=== PATIENT | female | born 1980 | race Caucasian/White ===

== ENCOUNTER 2018-09-21 17:55 | Inpatient (IN) | payer MEDICAID, OTHER ==
[2018-09-21 18:19] VITALS: BMI 32.3
[2018-09-21] MEDS ORDERED: Sodium Chloride 0.9% 1,000 ML IV ONE (19:21)
--- NOTE | 2018-09-21 19:23 | C.PDOC ---
History Of Present Illness 38 year old female presents to ED with complaint of dysuria, back pain, suprapubic pressure, fever/chills, nausea, and vomiting for the past 3 days. Temperature noted to be 102.4. Patient took Motrin for fever, but states that she vomited it up. Patient was given tylenol in triage. Patient's last menstrual period was on 08/20/18. Patient reports that she is not . She denies history of kidney stones. Patient states she feels generally weak and also described a diffuse, nonradiating headache. She denies diarrhea, constipation, pelvic bleeding, vaginal discharge, hematuria, cough, body aches, and sore throat. No other complaints at this time. Time Seen by Provider: 09/21/18 19:06 Chief Complaint (Nursing): Female Genitourinary History Per: Patient History/Exam Limitations: no limitations Onset/Duration Of Symptoms: Days (3) Current Symptoms Are (Timing): Still Present Quality Of Discomfort: "Pain" Associated Symptoms: Fever, Nausea, Vomiting, Back Pain (lower), Urinary Symptoms (dysuria), Other (pelvic pain) Abnormal Vaginal Bleeding: No Past Medical History Reviewed: Historical Data, Nursing Documentation, Vital Signs Vital Signs: Last Vital Signs Temp 102.4 F H 09/21/18 18:19 Pulse 133 H 09/21/18 18:19 Resp 22 09/21/18 18:19 BP 128/86 09/21/18 18:19 Pulse Ox 99 09/21/18 18:19 Primary Care Provider: FAMILY PROVIDER,NO - Medical History PMH: No Chronic Diseases Denies: Kidney Stones Surgical History: No Surg Hx - [facility] Procedures INJECT/INFUSE NEC (08/09/14) Family History: States: Unknown Family Hx - Social History Hx Alcohol Use: No Hx Substance Use: No - Immunization History Hx Tetanus Toxoid Vaccination: No Hx Influenza Vaccination: No Hx Pneumococcal Vaccination: No Review Of Systems Except As Marked, All Systems Reviewed And Found Negative. Constitutional: Positive for: Fever Gastrointestinal: Positive for: Nausea, Vomiting Genitourinary: Positive for: Dysuria, Pelvic Pain Musculoskeletal: Positive for: Back Pain Physical Exam - Physical Exam Appears: No Acute Distress, Other (Appears ill) Skin: Normal Color, Warm, Diaphoretic Head: Atraumatic, Normacephalic Eye(s): bilateral: Normal Inspection Oral Mucosa: Dry Throat: Normal, No Erythema, No Exudate, No Drooling Neck: Normal ROM, Supple Lymphatic: No Adenopathy Chest: Symmetrical, No Deformity Cardiovascular: Other (tachycardic) Respiratory: Normal Breath Sounds, No Rales, No Rhonchi, No Wheezing Gastrointestinal/Abdominal: Bowel Sounds (normoactive), Soft, Tenderness (suprapubic), No Rebound Back: Normal Inspection, CVA Tenderness (bilaterlly, worse on the left side), No Decreased ROM Extremity: Normal ROM, Capillary Refill (<2 seconds), No Swelling Extremity: Bilateral: Atraumatic Neurological/Psych: Oriented x3, Normal Speech, Normal Cognition ED Course And Treatment - Laboratory Results Result Diagrams: 09/21/18 19:21 09/21/18 21:02 O2 Sat by Pulse Oximetry: 99 (in RA) Pulse Ox Interpretation: Normal Medical Decision Making Medical Decision Making: Impression: 38 year old female presents to ED with complaint of dysuria, lower back pain, pelvic pain, fevers, nausea, and vomiting for the past 3 days. Initial Plan: Urine POC negative per ED RN. CMP CBC blood culture UA/UC IV fluids Toradol Tylenol Zofran Rocephin 09/21/18 2100 Patient states she is feeling a bit better. Awaiting results of CMP. Additional fluids ordered. 09/21/182134 Labs reviewed with patient. Patient with pyuria, 21k WBC and fever. Not . Pyelonephritis. Plan for admission. 09/21/182135 Spoke with Gaudencio Serra, Hospitalist, and will admit. Disposition - Disposition Disposition Time: 21:36 Condition: GOOD - Clinical Impression Clinical Impression: Pyelonephritis - PA / [employer] / Resident Statement MD/DO has reviewed & agrees with the documentation as recorded. (Yelena Flower) - Scribe Statement The provider has reviewed the documentation as recorded by the Scribe (Yelena Flower) All medical record entries made by the Scribe were at my direction and personally dictated by me. I have reviewed the chart and agree that the record accurately reflects my personal performance of the history, physical exam, medical decision making, and the department course for this patient. I have also personally directed, reviewed, and agree with the discharge instructions and disposition.
[2018-09-21] MEDS ORDERED: Sodium Chloride 0.9% 1,000 ML ONE (19:44)
[2018-09-21 19:59] LABS: BASO % 0.1 % (0.0-2.0); HEMOGLOBIN 12.6 g/dL (11.0-16.0); LYMPH # 1.9 K/uL (1.0-4.3); LYMPH % 9.2 % (20.0-40.0); MEAN CORPUSCULAR HEMOGLOBIN 32.3 pg (27.0-31.0); MEAN CORPUSCULAR HGB CONC 34.2 g/dL (33.0-37.0); MEAN PLATELET VOLUME 7.9 fL (7.2-11.7); MONO % 9.6 % (0.0-10.0); NEUT # 17.1 K/uL (1.8-7.0); NEUT % 81.1 % (50.0-75.0); PLATELET COUNT 268 K/uL (130-400); RBC 3.88 Mil/uL (3.80-5.20); RED CELL DISTRIBUTION WIDTH 13.4 % (11.5-14.5)
[2018-09-21 20:07] LABS: SQUAMOUS EPITHIAL 7 /hpf (0-5); URINE BILIRUBIN NEGATIVE (NEGATIVE); URINE BLOOD 3+ (NEGATIVE); URINE CLARITY Turbid (Clear); URINE COLOR Amber (YELLOW); URINE GLUCOSE (UA) NORMAL (Normal); URINE LEUKOCYTE ESTERASE 2+ Leu/uL (Negative); URINE PROTEIN 2+ mg/dL (NEGATIVE); WBC CLUMPS MANY /hpf
[2018-09-21 20:08] LABS: MEAN CELL VOLUME 94.6 fL (81.0-99.0); WHITE BLOOD COUNT 21.1 K/uL (4.8-10.8)
[2018-09-21] MEDS ORDERED: Sodium Chloride 0.9% 1,000 ML IV STA (20:40)
[2018-09-21 21:19] LABS: ALB/GLOB RATIO 0.9 (1.0-2.1); ALBUMIN 3.5 g/dL (3.5-5.0); ALT/SGPT 20 U/L (9-52); AST/SGOT 19 U/L (14-36); BLOOD UREA NITROGEN 7 mg/dL (7-17); GFR NON-AFRICAN AMERICAN > 60
[2018-09-21] MEDS ORDERED: Potassium Chloride 20 mEq ER Tab PO STA (21:23)
[2018-09-21] MEDS ORDERED: Potassium Chloride 20 mEq ER Tab PO ONE (21:33)
[2018-09-21 22:01] LABS: BASOPHIL 1 % (0-2); LYMPHOCYTE 12 % (20-40); MONOCYTE 7 % (0-10); NEUTROPHIL 80 % (50-75); TOTAL CELLS COUNTED 100
[2018-09-21 22:02] LABS: PLATELET ESTIMATE NORMAL (NORMAL)
[2018-09-22] MEDS: Sodium Chloride 0.9% 1,000 ML IV SCH ×5 (01:05→19:31)
--- NOTE | 2018-09-22 01:10 | CP.PCM.HP ---
<Bear Rae - Last Filed: 09/22/18 01:17> History of Present Illness - History of Present Illness History of Present Illness: 38F PMHx of hematuria presents to ED with complaint of dysuria, back pain, suprapubic pressure, fever/chills, nausea, and vomiting for the past 3 days. Temperature noted to be 102.4. Patient took Motrin for fever, but states that she vomited it up. Pt reports having hematuria for about 3 years or so, has followed up with a doctor on but cant remember her name. says she got an U/S that showed kidney stones. Patient reports that she is not . Patient states she feels generally weak and also described a diffuse, nonradiating headache. Pos+ Nausea, Vomiting, Fevers, Chills, hematuria, dysuria Neg- CP, SOB, diarrhea, constipation, pelvic bleeding, vaginal discharge, cough, body aches, and sore throat. PMHx: hematuria and possible kidney stones? Pt unsure PSx: denies FH:denies SocHx: denies ETOH smoking, drugs Allergies: none Home Rx: none Present on Admission - Present on Admission Any Indicators Present on Admission: No Review of Systems - Review of Systems All systems: reviewed and no additional remarkable complaints except (as per HPI) Past Patient History - Past Medical History & Family History Past Medical History?: No - Past Social History Smoking Status: Never Smoked - CARDIAC Hx Cardiac Disorders: No - PULMONARY Hx Respiratory Disorders: No - NEUROLOGICAL Hx Neurological Disorder: No - HEENT Hx HEENT Problems: No - RENAL Hx Chronic Kidney Disease: No Hx Kidney Stones: No - ENDOCRINE/METABOLIC Hx Endocrine Disorders: No - HEMATOLOGICAL/ONCOLOGICAL Hx Blood Disorders: No - INTEGUMENTARY Hx Dermatological Problems: No - MUSCULOSKELETAL/RHEUMATOLOGICAL Hx Musculoskeletal Disorders: No - GASTROINTESTINAL Hx Gastrointestinal Disorders: No - GENITOURINARY/GYNECOLOGICAL Hx Genitourinary Disorders: Yes Other/Comment: bacterial vaginitis, uti - PSYCHIATRIC Hx Substance Use: No - SURGICAL HISTORY Hx Surgeries: No - ANESTHESIA Hx Anesthesia: No Meds Allergies/Adverse Reactions: Allergies Allergy/AdvReac Type Severity Reaction Status Date / Time No Known Allergies Allergy Verified 09/21/18 18:19 Physical Exam - Constitutional Appears: Non-toxic, No Acute Distress - Head Exam Head Exam: ATRAUMATIC, NORMAL INSPECTION - Eye Exam Eye Exam: EOMI, Normal appearance Pupil Exam: PERRL - ENT Exam ENT Exam: Mucous Membranes Moist, Normal Exam - Neck Exam Neck exam: Positive for: Full Rom. Negative for: Meningismus, Thyromegaly - Respiratory Exam Respiratory Exam: Clear to Auscultation Bilateral. absent: Rales, Rhonchi, Wheezes - Cardiovascular Exam Cardiovascular Exam: RRR, +S1, +S2 - GI/Abdominal Exam GI & Abdominal Exam: Normal Bowel Sounds. absent: Distended, Firm, Tenderness - Exam Additional comments: suprapubic tenderness - Extremities Exam Extremities exam: Positive for: pedal pulses present. Negative for: pedal edema - Back Exam Back exam: CVA tenderness (L), CVA tenderness (R) (worse on Right) - Neurological Exam Neurological exam: Alert, CN II-XII Intact, Oriented x3 - Psychiatric Exam Psychiatric exam: Normal Affect, Normal Mood - Skin Skin Exam: Diaphoretic, Normal Color, Warm Results - Vital Signs Recent Vital Signs: Last Vital Signs Temp 98 F 09/21/18 22:20 Pulse 89 09/21/18 22:20 Resp 19 09/21/18 22:20 BP 112/74 09/21/18 22:20 Pulse Ox 100 09/21/18 22:20 - Labs Result Diagrams: 09/21/18 19:21 09/21/18 21:02 Labs: Laboratory Results - last 24 hr 09/21/18 09/21/18 09/21/18 19:21 20:00 21:02 WBC 21.1 H D RBC 3.88 Hgb 12.6 Hct 36.7 MCV 94.6 D MCH 32.3 H MCHC 34.2 RDW 13.4 Plt Count 268 MPV 7.9 Neut % (Auto) 81.1 H Lymph % (Auto) 9.2 L [place] % (Auto) 9.6 Eos % (Auto) 0.0 Baso % (Auto) 0.1 Neut # (Auto) 17.1 H Lymph # (Auto) 1.9 [place] # (Auto) 2.0 H Eos # (Auto) 0.0 Baso # (Auto) 0.0 Neutrophils % (Manual) 80 H Lymphocytes % (Manual) 12 L Monocytes % (Manual) 7 Basophils % (Manual) 1 Platelet Estimate Normal Sodium 135 Potassium 3.2 L Chloride 104 Carbon Dioxide 23 Anion Gap 12 BUN 7 Creatinine 0.8 Est GFR ( Amer) > 60 Est GFR (Non-Af Amer) > 60 Random Glucose 131 H D Lactic Acid Calcium 8.0 L Total Bilirubin 0.6 AST 19 ALT 20 Alkaline Phosphatase 72 Total Protein 7.2 Albumin 3.5 D Globulin 3.7 Albumin/Globulin Ratio 0.9 L Urine Color [place] Urine Clarity Turbid Urine pH 6.0 Ur Specific [place] 1.016 Urine Protein 2+ H Urine Glucose (UA) Normal Urine Ketones 1+ H Urine Blood 3+ H Urine Nitrate Negative Urine Bilirubin Negative Urine Urobilinogen 2.0 H Ur Leukocyte Esterase 2+ H Urine WBC (Auto) 3545 H Urine RBC (Auto) 29 H Urine WBC Clumps (Auto) Many H Ur Squamous Epith Cells 7 H 09/21/18 22:10 WBC RBC Hgb Hct MCV MCH MCHC RDW Plt Count MPV Neut % (Auto) Lymph % (Auto) [place] % (Auto) Eos % (Auto) Baso % (Auto) Neut # (Auto) Lymph # (Auto) [place] # (Auto) Eos # (Auto) Baso # (Auto) Neutrophils % (Manual) Lymphocytes % (Manual) Monocytes % (Manual) Basophils % (Manual) Platelet Estimate Sodium Potassium Chloride Carbon Dioxide Anion Gap BUN Creatinine Est GFR ( Amer) Est GFR (Non-Af Amer) Random Glucose Lactic Acid 0.9 Calcium Total Bilirubin AST ALT Alkaline Phosphatase Total Protein Albumin Globulin Albumin/Globulin Ratio Urine Color Urine Clarity Urine pH Ur Specific [place] Urine Protein Urine Glucose (UA) Urine Ketones Urine Blood Urine Nitrate Urine Bilirubin Urine Urobilinogen Ur Leukocyte Esterase Urine WBC (Auto) Urine RBC (Auto) Urine WBC Clumps (Auto) Ur Squamous Epith Cells Assessment & Plan - Assessment and Plan (Free Text) Assessment: 38F admitted for UTI, possible pyelonephritis UTI, Possible Pyelonephritis-acute NS @ 200 Rocephin 1g q12 IVPB Zofran PRN Tylenol for fevers f/u cultures, renal US Hypokalemia-acute Replete accordingly f/u AM Labs Hematuria-chronic f/u Renal US possible nephrolithiasis PPx no anticoag, hematuria HHD CK PGY1 <Hilario Verduzco - Last Filed: 09/22/18 06:35> Results - Vital Signs Recent Vital Signs: Last Vital Signs Temp 97.5 F L 09/22/18 02:13 Pulse 83 09/21/18 23:27 Resp 20 09/21/18 23:27 BP 93/61 L 09/21/18 23:27 Pulse Ox 95 09/21/18 23:27 - Labs Result Diagrams: 09/21/18 19:21 09/21/18 21:02 Labs: Laboratory Results - last 24 hr 09/21/18 09/21/18 09/21/18 19:21 20:00 21:02 WBC 21.1 H D RBC 3.88 Hgb 12.6 Hct 36.7 MCV 94.6 D MCH 32.3 H MCHC 34.2 RDW 13.4 Plt Count 268 MPV 7.9 Neut % (Auto) 81.1 H Lymph % (Auto) 9.2 L [place] % (Auto) 9.6 Eos % (Auto) 0.0 Baso % (Auto) 0.1 Neut # (Auto) 17.1 H Lymph # (Auto) 1.9 [place] # (Auto) 2.0 H Eos # (Auto) 0.0 Baso # (Auto) 0.0 Neutrophils % (Manual) 80 H Lymphocytes % (Manual) 12 L Monocytes % (Manual) 7 Basophils % (Manual) 1 Platelet Estimate Normal Sodium 135 Potassium 3.2 L Chloride 104 Carbon Dioxide 23 Anion Gap 12 BUN 7 Creatinine 0.8 Est GFR ( Amer) > 60 Est GFR (Non-Af Amer) > 60 Random Glucose 131 H D Lactic Acid Calcium 8.0 L Total Bilirubin 0.6 AST 19 ALT 20 Alkaline Phosphatase 72 Total Protein 7.2 Albumin 3.5 D Globulin 3.7 Albumin/Globulin Ratio 0.9 L Urine Color [place] Urine Clarity Turbid Urine pH 6.0 Ur Specific [place] 1.016 Urine Protein 2+ H Urine Glucose (UA) Normal Urine Ketones 1+ H Urine Blood 3+ H Urine Nitrate Negative Urine Bilirubin Negative Urine Urobilinogen 2.0 H Ur Leukocyte Esterase 2+ H Urine WBC (Auto) 3545 H Urine RBC (Auto) 29 H Urine WBC Clumps (Auto) Many H Ur Squamous Epith Cells 7 H 09/21/18 22:10 WBC RBC Hgb Hct MCV MCH MCHC RDW Plt Count MPV Neut % (Auto) Lymph % (Auto) [place] % (Auto) Eos % (Auto) Baso % (Auto) Neut # (Auto) Lymph # (Auto) [place] # (Auto) Eos # (Auto) Baso # (Auto) Neutrophils % (Manual) Lymphocytes % (Manual) Monocytes % (Manual) Basophils % (Manual) Platelet Estimate Sodium Potassium Chloride Carbon Dioxide Anion Gap BUN Creatinine Est GFR ( Amer) Est GFR (Non-Af Amer) Random Glucose Lactic Acid 0.9 Calcium Total Bilirubin AST ALT Alkaline Phosphatase Total Protein Albumin Globulin Albumin/Globulin Ratio Urine Color Urine Clarity Urine pH Ur Specific [place] Urine Protein Urine Glucose (UA) Urine Ketones Urine Blood Urine Nitrate Urine Bilirubin Urine Urobilinogen Ur Leukocyte Esterase Urine WBC (Auto) Urine RBC (Auto) Urine WBC Clumps (Auto) Ur Squamous Epith Cells Assessment & Plan - Date & Time Date: 09/22/18 (I have seen and examined the patient. I agree with the findings and plan of care as documented by Dr. Rae. Patient with acute pyelonephritis. Urine and blood cultures. Rocephin IV for now. Check renal u ltrasound. Hypokalemia. Replete. Recheck labs in AM. Monitor for acute changes.) Time: 02:40 Attending/Attestation - Attestation I have personally seen and examined this patient.: Yes I have fully participated in the care of the patient.: Yes I have reviewed all pertinent clinical information: Yes
[2018-09-22] MEDS ORDERED: Potassium Chloride 20 mEq ER Tab PO ONE (06:00)
--- NOTE | 2018-09-22 07:29 | CP.PCM.PN ---
<MercedesAnanda - Last Filed: 09/22/18 16:56> Subjective - Date & Time of Evaluation Date of Evaluation: 09/22/18 Time of Evaluation: 10:00 - Subjective Subjective: PGY1 medicine progress note for Dr. Gardner Pt seen and examined at bedside. Fever 100.4 overnight, treated with Tylenol. Pt reports improvement of pain,but still has right sided back pain. 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 Denies chest pain, sob, abdominal pain, n/v/d, hematochezia. Objective - Vital Signs/Intake and Output Vital Signs (last 24 hours): Temp Pulse Resp BP Pulse Ox 97.5 F L 83 20 93/61 L 95 09/22/18 02:13 09/21/18 23:27 09/21/18 23:27 09/21/18 23:27 09/21/18 23:27 Intake and Output: 09/22/18 09/22/18 06:59 18:59 Intake Total 1440 Balance 1440 - Medications Medications: Current Medications Acetaminophen (Tylenol 325mg Tab) 650 mg PO Q6 PRN PRN Reason: Fever >100.4 F Last Admin: 09/22/18 01:13 Dose: 650 mg Ceftriaxone Sodium 1 gm/ (Sodium Chloride) 100 mls @ 100 mls/hr IVPB Q12H LAWANDA; Protocol Sodium Chloride (Sodium Chloride 0.9%) 1,000 mls @ 200 mls/hr IV .Q5H LAWANDA Last Admin: 09/22/18 05:47 Dose: 200 mls/hr Ondansetron HCl (Zofran Inj) 4 mg IVP Q4 PRN PRN Reason: Nausea/Vomiting - Labs Labs: 09/21/18 19:21 09/21/18 21:02 - Constitutional Appears: Non-toxic, No Acute Distress - Head Exam Head Exam: ATRAUMATIC, NORMAL INSPECTION - Eye Exam Eye Exam: EOMI, Normal appearance - ENT Exam ENT Exam: Mucous Membranes Moist - Respiratory Exam Respiratory Exam: Clear to Ausculation Bilateral. absent: Rales, Rhonchi, Wheezes, Respiratory Distress, Stridor - Cardiovascular Exam Cardiovascular Exam: Tachycardia (approximately 100), +S1, +S2 - GI/Abdominal Exam GI & Abdominal Exam: Soft, Normal Bowel Sounds. absent: Distended, Firm, Guarding, Rigid, Tenderness (no suprapubic tenderness) Additional comments: (-) shani's sign - Extremities Exam Extremities Exam: Normal Capillary Refill. absent: Calf Tenderness, Pedal Edema, Tenderness - Back Exam Back Exam: CVA tenderness (L), CVA tenderness (R) (right greater than left) - Neurological Exam Neurological Exam: Alert, Awake, Normal Gait - Psychiatric Exam Psychiatric exam: Normal Affect, Normal Mood - Skin Skin Exam: Dry, Normal Color, Warm Assessment and Plan - Assessment and Plan (Free Text) Assessment: This is a 38 year old female with PMH of nephrolithiasis, who presents with fever, back pain, hematuria and pain on urination for the past 3 days. Plan: Sepsis secondary to UTI Clinical pyelonephritis Posisble kidney stone Tmax 102.9 in the past 24 hours, pt tachycardic with leukocytosis UA shows leukocyte esterase, bacteria, pyuria Prelim urine culture shows gram negative rods, f/u official NS @ 200 Rocephin 1g q12 IVPB (09/22) switched to Primaxin 500 mg IVPB q6h (09/22) due to continued fevers Zofran PRN Tylenol for fevers Renal US shows no nephrolithiasis, no hydronephrosis f/u official urine culture, blood culture, CTAP with and without contrast f/u stat labs as well Hypokalemia-acute Replete as needed Hematuria-chronic Renal US as above F/u CTAP PPx no anticoag, hematuria SCDs HHD Case discussed with Dr. Kendra Long PGY1 <Angel Gardner H - Last Filed: 09/22/18 17:36> Objective - Vital Signs/Intake and Output Vital Signs (last 24 hours): Temp Pulse Resp BP Pulse Ox 99.0 F 111 H 18 138/83 98 09/22/18 16:06 09/22/18 15:00 09/22/18 15:00 09/22/18 15:00 09/22/18 15:00 Intake and Output: 09/22/18 09/22/18 06:59 18:59 Intake Total 1440 1700 Balance 1440 1700 - Medications Medications: Current Medications Acetaminophen (Tylenol 325mg Tab) 650 mg PO Q6 PRN PRN Reason: Fever >100.4 F Last Admin: 09/22/18 15:06 Dose: 650 mg Sodium Chloride (Sodium Chloride 0.9%) 1,000 mls @ 200 mls/hr IV .Q5H LAWANDA Last Admin: 09/22/18 10:38 Dose: 200 mls/hr Imipenem/Cilastatin Sodium 500 (mg/ Sodium Chloride) 100 mls @ 100 mls/hr IVPB Q6H LAWANDA; Protocol Ondansetron HCl (Zofran Inj) 4 mg IVP Q4 PRN PRN Reason: Nausea/Vomiting - Labs Labs: 09/21/18 19:21 09/21/18 21:02 Attending/Attestation - Attestation I have personally seen and examined this patient.: Yes I have fully participated in the care of the patient.: Yes I have reviewed all pertinent clinical information, including history, physical exam and plan: Yes Notes (Text): 09/22/18 17:31 Medical attending: Patient was seen and examined by me. Agree with the above note by the resident We are ordering a CT scan of the abdomen and pelvis to assess for potential stones/nephrolithiais which could cause further complications of her UTI/pyelonephritis. She does have flank pain on exam. Later in the day she was still having fevers and so we changed her IV abx from the rocpehin IV over to IV primaxin Angel Gardner
[2018-09-22] MEDS ORDERED: Iodixanol 320 MG/ML 100 ML BOTTLE IV ONE (12:49)
--- NOTE | 2018-09-22 13:43 | US ---
Date of service: 09/22/2018 PROCEDURE: Ultrasound of the Kidneys HISTORY: pyelo, possible hx of stones, hematuria COMPARISON: None available. TECHNIQUE: Sonogram of the kidneys. FINDINGS: RIGHT KIDNEY: Measures: 13.3 cm. Normal in size, contour and echogenicity. No stone, solid mass lesion or hydronephrosis visualized. LEFT KIDNEY: Measures: 12.5 cm. Normal in size, contour and echogenicity. No stone, solid mass lesion or hydronephrosis visualized. OTHER FINDINGS: None. IMPRESSION: No hydronephrosis or nephrolithiasis.
[2018-09-22 19:57] LABS: BASO % 0.1 % (0.0-2.0); EOS % 0.2 % (0.0-4.0); HEMOGLOBIN 11.3 g/dL (11.0-16.0); LYMPH # 2.1 K/uL (1.0-4.3); LYMPH % 11.2 % (20.0-40.0); MEAN CELL VOLUME 93.9 fL (81.0-99.0); MEAN CORPUSCULAR HEMOGLOBIN 31.8 pg (27.0-31.0); MEAN CORPUSCULAR HGB CONC 33.9 g/dL (33.0-37.0); MEAN PLATELET VOLUME 7.6 fL (7.2-11.7); MONO # 1.8 K/uL (0.0-0.8); MONO % 9.4 % (0.0-10.0); NEUT # 14.9 K/uL (1.8-7.0); NEUT % 79.1 % (50.0-75.0); NRBC % 0.1 % (0.0-2.0); RBC 3.56 Mil/uL (3.80-5.20); RED CELL DISTRIBUTION WIDTH 13.3 % (11.5-14.5); WHITE BLOOD COUNT 18.8 K/uL (4.8-10.8)
[2018-09-22 20:15] LABS: ALB/GLOB RATIO 0.9 (1.0-2.1); ALBUMIN 3.6 g/dL (3.5-5.0); ALT/SGPT 21 U/L (9-52); AST/SGOT 18 U/L (14-36); BLOOD UREA NITROGEN 4 mg/dL (7-17); GFR NON-AFRICAN AMERICAN > 60
[2018-09-23] MEDS: Sodium Chloride 0.9% 1,000 ML IV SCH ×4 (01:57→17:48)
[2018-09-23 07:53] LABS: BASO # 0.1 K/uL (0.0-0.2); BASO % 0.4 % (0.0-2.0); EOS # 0.2 K/uL (0.0-0.7); EOS % 1.2 % (0.0-4.0); HEMOGLOBIN 11.4 g/dL (11.0-16.0); LYMPH # 2.3 K/uL (1.0-4.3); LYMPH % 13.5 % (20.0-40.0); MEAN CELL VOLUME 94.9 fL (81.0-99.0); MEAN CORPUSCULAR HGB CONC 33.7 g/dL (33.0-37.0); MEAN PLATELET VOLUME 8.2 fL (7.2-11.7); MONO # 0.9 K/uL (0.0-0.8); MONO % 5.2 % (0.0-10.0); NEUT # 13.5 K/uL (1.8-7.0); NEUT % 79.7 % (50.0-75.0); RBC 3.57 Mil/uL (3.80-5.20); RED CELL DISTRIBUTION WIDTH 13.5 % (11.5-14.5)
[2018-09-23 08:16] LABS: ALBUMIN 3.4 g/dL (3.5-5.0); ALT/SGPT 18 U/L (9-52); AST/SGOT 23 U/L (14-36); BLOOD UREA NITROGEN 3 mg/dL (7-17); CALCIUM 7.9 mg/dl (8.6-10.4); GFR NON-AFRICAN AMERICAN > 60
--- NOTE | 2018-09-23 11:18 | CT ---
Date of service: 09/22/2018 PROCEDURE: CT Abdomen and Pelvis with contrast HISTORY: Pyelonephritis. History of nephrolithiasis. Hematuria COMPARISON: 09/22/2018. Renal ultrasound. TECHNIQUE: Intravenous contrast dose: 100 cc Visipaque 320. Radiation dose: Total exam DLP = 1010.59 mGy-cm. This CT exam was performed using one or more of the following dose reduction techniques: Automated exposure control, adjustment of the mA and/or kV according to patient size, and/or use of iterative reconstruction technique. FINDINGS: LOWER THORAX: Unremarkable. LIVER: Unremarkable. No gross lesion or ductal dilatation. GALLBLADDER AND BILE DUCTS: Unremarkable. PANCREAS: Unremarkable. No gross lesion or ductal dilatation. SPLEEN: Unremarkable. ADRENALS: Unremarkable. No mass. KIDNEYS AND URETERS: Edematous kidneys bilaterally right greater than left. Perinephric inflammatory changes noted right kidney. Abnormal contrast-enhancing characteristics of most of the right kidney and portions the left kidney indicative of acute pyelonephritis. No perinephric collection. Unremarkable renal arteries and veins bilaterally. VASCULATURE: Unremarkable. No aortic aneurysm. No atherosclerotic calcification or mural plaque present. BOWEL: Unremarkable. No obstruction. No gross mural thickening. APPENDIX: A normal appendix is visualized in it's entirety. PERITONEUM: Unremarkable. No free fluid. No free air. LYMPH NODES: Unremarkable. No enlarged lymph nodes. BLADDER: Unremarkable. REPRODUCTIVE: Unremarkable. BONES: No acute fracture. OTHER FINDINGS: None. IMPRESSION: Edematous right kidney with abnormal contrast-enhancing characteristics and perinephric stranding consistent with acute inflammatory process-pyelonephritis. Less pronounced changes in the left kidney. No evidence of renal calculus disease, ureteral calculus disease, obstructive uropathy. Unremarkable urinary bladder.
[2018-09-23] MEDS ORDERED: Potassium Chloride 20 mEq ER Tab PO ONE (13:15)
[2018-09-23 13:27] LABS: ABG ALLEN TEST POS; ARTERIAL BLOOD GAS HCO3 20.4 mmol/L (21-28); ARTERIAL BLOOD GAS O2 SAT 90.7 % (95-98); ARTERIAL BLOOD GAS PCO2 25 mm/Hg (35-45); ARTERIAL BLOOD GAS PH 7.44 (7.35-7.45); ARTERIAL BLOOD GAS PO2 49 mm/Hg (80-100); ARTERIAL BLOOD GAS TCO2 17.8 mmol/L (22-28)
--- NOTE | 2018-09-23 14:08 | CP.PCM.PN ---
<Ananda Long - Last Filed: 09/23/18 16:21> Subjective - Date & Time of Evaluation Date of Evaluation: 09/23/18 Time of Evaluation: 10:15 - Subjective Subjective: PGY1 medicine progress note for Dr. Gardner Pt seen and examined at bedside. Pt reports improvement of pain, but still has right sided back pain. Reports resolution of heamturia. Denies chills, chest pain, abdominal pain, n/v/d, hematochezia, melena. Endorses intermittent shortness of breath with cough, nonproductive. Objective - Vital Signs/Intake and Output Vital Signs (last 24 hours): Temp Pulse Resp BP Pulse Ox 100.9 F H 111 H 20 138/82 98 09/23/18 12:20 09/23/18 12:20 09/23/18 12:20 09/23/18 12:20 09/23/18 12:20 Intake and Output: 09/23/18 09/23/18 06:59 18:59 Intake Total 3640 Balance 3640 - Medications Medications: Current Medications Acetaminophen (Tylenol 325mg Tab) 650 mg PO Q6 PRN PRN Reason: Fever >100.4 F Last Admin: 09/23/18 12:20 Dose: 650 mg Sodium Chloride (Sodium Chloride 0.9%) 1,000 mls @ 200 mls/hr IV .Q5H [facility] Last Admin: 09/23/18 12:11 Dose: 200 mls/hr Imipenem/Cilastatin Sodium 500 (mg/ Sodium Chloride) 100 mls @ 100 mls/hr IVPB Q6H [facility]; Protocol Last Admin: 09/23/18 12:09 Dose: 100 mls/hr Ondansetron HCl (Zofran Inj) 4 mg IVP Q4 PRN PRN Reason: Nausea/Vomiting - Labs Labs: 09/23/18 07:46 09/23/18 07:46 - Additional Findings Additional findings: - Constitutional Appears: Non-toxic, No Acute Distress - Head Exam Head Exam: ATRAUMATIC, NORMAL INSPECTION - Eye Exam Eye Exam: EOMI, Normal appearance - ENT Exam ENT Exam: Mucous Membranes Moist - Respiratory Exam Respiratory Exam: Clear to Ausculation Bilateral. absent: Rales, Rhonchi, Wheezes, Respiratory Distress, Stridor - Cardiovascular Exam Cardiovascular Exam: Tachycardia (approximately 100), +S1, +S2 - GI/Abdominal Exam GI & Abdominal Exam: Soft, Normal Bowel Sounds. absent: Distended, Firm, Guarding, Rigid, Tenderness (no suprapubic tenderness) Additional comments: (-) sahni's sign - Extremities Exam Extremities Exam: Normal Capillary Refill. absent: Calf Tenderness, Pedal Edema , Tenderness - Back Exam Back Exam: CVA tenderness (R). Absent left sided cva tendenress - Neurological Exam Neurological Exam: Alert, Awake, Normal Gait - Psychiatric Exam Psychiatric exam: Normal Affect, Normal Mood - Skin Skin Exam: Dry, Normal Color, Warm Assessment and Plan - Assessment and Plan (Free Text) Assessment: This is a 38 year old female with PMH of nephrolithiasis, who presents with fever, back pain, hematuria and pain on urination for the past 3 days. Plan: Sepsis secondary to pyelonephritis, PNA Pyelonephritis Tmax 101.5 in the past 24 hours, pt tachycardic with leukocytosis Leukocytosis is downtrending, with left shift, no bandemia UA shows leukocyte esterase, bacteria, pyuria Urine culture grew e. coli only resistant to ampicillin NS IVF reduced to 100 in light of small pleural effusions on chest CT Continue Primaxin 500 mg IVPB q6h (09/22) Zofran PRN Tylenol for fevers Renal US shows no nephrolithiasis, no hydronephrosis CTAP shows left pyelonephritis, no hydronephrosis or nephrolithiasis ABG (09/23) with shock panel shows lactate is 1.3 F/u repeat urinalysis with culture and sensitivity Pneumonia, likely CAP as developed within 48 hours of admission Chest CT shows multi-focal infiltrates, small bilateral pleural effusions Will start Azithromycin 500 mg IVPB q12 ABG shows respiratory alkalosis, po2 is 49 O2 via NC PRN F/u legionella, strep pneumo, mycoplasma pneumoniae Hypokalemia-acute Replete as needed Hematuria-chronic, improving UA as above Renal US as above CTAP as above PPx no anticoag, hematuria SCDs HHD Lactobacillus Case discussed with Dr. Kendra Long PGY1 <Angel Gardner - Last Filed: 09/24/18 09:14> Objective - Vital Signs/Intake and Output Vital Signs (last 24 hours): Temp Pulse Resp BP Pulse Ox 98.3 F 94 H 20 151/88 H 96 09/24/18 07:00 09/24/18 07:00 09/24/18 07:00 09/24/18 07:00 09/24/18 07:00 Intake and Output: 09/24/18 09/24/18 06:59 18:59 Intake Total 940 Balance 940 - Medications Medications: Current Medications Acetaminophen (Tylenol 325mg Tab) 650 mg PO Q6 PRN PRN Reason: Fever >100.4 F Last Admin: 09/23/18 12:20 Dose: 650 mg Imipenem/Cilastatin Sodium 500 (mg/ Sodium Chloride) 100 mls @ 100 mls/hr IVPB Q6H [facility]; Protocol Last Admin: 09/24/18 05:38 Dose: 100 mls/hr Sodium Chloride (Sodium Chloride 0.9%) 1,000 mls @ 100 mls/hr IV .Q10H [facility] Last Admin: 09/24/18 05:39 Dose: 100 mls/hr Azithromycin 500 mg/ Sodium (Chloride) 250 mls @ 250 mls/hr IVPB DAILY [facility]; Protocol Ketorolac Tromethamine (Toradol) 30 mg IVP Q12 PRN PRN Reason: Pain, moderate (4-7) Last Admin: 09/23/18 22:30 Dose: 30 mg Lactobacillus Acidophilus (Lactobacillus) 1 cap PO BID [facility] Last Admin: 09/23/18 17:45 Dose: 1 cap Ondansetron HCl (Zofran Inj) 4 mg IVP Q4 PRN PRN Reason: Nausea/Vomiting - Labs Labs: 09/24/18 06:50 09/24/18 06:50 Attending/Attestation - Attestation I have personally seen and examined this patient.: Yes I have fully participated in the care of the patient.: Yes I have reviewed all pertinent clinical information, including history, physical exam and plan: Yes Notes (Text): 09/24/18 09:11 Medical attending: Patient was seen and examined by me. Agree with the above note by the resident The patient was not in any acute distress when we came and saw however she was still noted to be having fevers and coughing. The CT of the abdomen and pelvis showed that in the lower portion of her lung conrad there were suspictious findings for pneumonia so we decided to also get a CT of the lungs and this shows she does in fact also have infiltrates as well. We have added on Azithromycin to the other abx she is already recieving, also chekcing the atypical studies as well Other than this she reports improvment of the flank pain that she was having Angel Gardner
--- NOTE | 2018-09-23 15:01 | CT ---
Date of service: 09/23/2018 PROCEDURE: CT Chest without contrast HISTORY: rule out pneumonia COMPARISON: None available. TECHNIQUE: Contiguous axial images were obtained through the chest without intravenous contrast enhancement. Sagittal and coronal reconstructions were performed. Radiation dose: Total exam DLP = 499.6 mGy-cm. This CT exam was performed using one or more of the following dose reduction techniques: Automated exposure control, adjustment of the mA and/or kV according to patient size, and/or use of iterative reconstruction technique. FINDINGS: LUNGS: Bilateral lower lobe infiltrates left greater than right consistent with pneumonia Subsegmental infiltrate medial segment right middle lobe Focal lingular infiltrate Trace bilateral pleural effusions MEDIASTINUM: Unremarkable thoracic aorta. No aneurysm. Normal sized heart. Main pulmonary artery unremarkable. No vascular congestion. No lymphadenopathy. No aortic atherosclerotic calcification. PLEURA: No pleural fluid. No pneumothorax. BONES: No fracture. No destructive lesion. UPPER ABDOMEN: Grossly unremarkable. 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
[2018-09-23] MEDS: Lactobacillus Acidophilus 500 MU Cap PO SCH (17:45)
[2018-09-23 18:02] LABS: SQUAMOUS EPITHIAL < 1 /hpf (0-5); URINE BILIRUBIN NEGATIVE (NEGATIVE); URINE BLOOD 3+ (NEGATIVE); URINE CLARITY Clear (Clear); URINE COLOR Straw (YELLOW); URINE GLUCOSE (UA) NORMAL (Normal); URINE LEUKOCYTE ESTERASE NEG Leu/uL (Negative); URINE PROTEIN NEGATIVE (NEGATIVE)
[2018-09-23] MEDS ORDERED: Azithromycin 500 MG in Sodium Chloride 0.9% 250 ML IVPB SCH (22:00)
[2018-09-24] MEDS: Sodium Chloride 0.9% 1,000 ML IV SCH ×2 (03:30→05:39)
--- NOTE | 2018-09-24 06:53 | CP.PCM.PN ---
<Ananda Long - Last Filed: 09/24/18 16:34> Subjective - Date & Time of Evaluation Date of Evaluation: 09/24/18 Time of Evaluation: 09:00 - Subjective Subjective: PGY1 medicine progress note for Dr. Gardner Pt seen and examined at bedside. Reports improvement of right sided flank/ back pain but still there. Reports resolution of hematuria. Continues to have nonproductive cough, and episodes of sob and tachycardia when walking. Denies chills, chest pain, pleuritic chest pain, abdominal pain, n/v/d, hematochezia, melena, lightheadedness, dizziness, headache. Objective - Vital Signs/Intake and Output Vital Signs (last 24 hours): Temp Pulse Resp BP Pulse Ox 98.2 F 88 20 115/74 96 09/23/18 23:47 09/23/18 23:47 09/23/18 23:47 09/23/18 23:47 09/23/18 23:47 Intake and Output: 09/23/18 09/24/18 18:59 06:59 Intake Total 580 940 Balance 580 940 - Medications Medications: Current Medications Acetaminophen (Tylenol 325mg Tab) 650 mg PO Q6 PRN PRN Reason: Fever >100.4 F Last Admin: 09/23/18 12:20 Dose: 650 mg Imipenem/Cilastatin Sodium 500 (mg/ Sodium Chloride) 100 mls @ 100 mls/hr IVPB Q6H [facility]; Protocol Last Admin: 09/24/18 05:38 Dose: 100 mls/hr Sodium Chloride (Sodium Chloride 0.9%) 1,000 mls @ 100 mls/hr IV .Q10H [facility] Last Admin: 09/24/18 05:39 Dose: 100 mls/hr Azithromycin 500 mg/ Sodium (Chloride) 250 mls @ 250 mls/hr IVPB DAILY [facility]; Protocol Ketorolac Tromethamine (Toradol) 30 mg IVP Q12 PRN PRN Reason: Pain, moderate (4-7) Last Admin: 09/23/18 22:30 Dose: 30 mg Lactobacillus Acidophilus (Lactobacillus) 1 cap PO BID [facility] Last Admin: 09/23/18 17:45 Dose: 1 cap Ondansetron HCl (Zofran Inj) 4 mg IVP Q4 PRN PRN Reason: Nausea/Vomiting - Labs Labs: 09/23/18 07:46 09/23/18 07:46 - Additional Findings Additional findings: - Constitutional Appears: Non-toxic, No Acute Distress - Head Exam Head Exam: ATRAUMATIC, NORMAL INSPECTION - Eye Exam Eye Exam: EOMI, Normal appearance - ENT Exam ENT Exam: Mucous Membranes Moist - Respiratory Exam Respiratory Exam: Clear to Ausculation Bilateral. Poor inspiratory effort despite counseling. absent: Rales, Rhonchi, Wheezes, Respiratory Distress, Stridor - Cardiovascular Exam Cardiovascular Exam: Tachycardia (approximately 100), +S1, +S2 - GI/Abdominal Exam GI & Abdominal Exam: Soft, Normal Bowel Sounds. absent: Distended, Firm, Guarding, Rigid, Tenderness (no suprapubic tenderness) Additional comments: (-) sahni's sign - Extremities Exam Extremities Exam: Normal Capillary Refill. absent: Calf Tenderness, Pedal Edema, Tenderness - Back Exam Back Exam: CVA tenderness (R). Absent left sided cva tendenress - Neurological Exam Neurological Exam: Alert, Awake, Normal Gait - Psychiatric Exam Psychiatric exam: Normal Affect, Normal Mood - Skin Skin Exam: Dry, Normal Color, Warm Assessment and Plan - Assessment and Plan (Free Text) Assessment: This is a 38 year old female with PMH of nephrolithiasis, who presents with fever, back pain, hematuria and pain on urination for the past 3 days. Plan: Sepsis secondary to pyelonephritis, PNA Pyelonephritis Tmax 100.9 in the past 24 hours, pt tachycardic with leukocytosis Leukocytosis is downtrending, with left shift, no bandemia UA shows leukocyte esterase, bacteria, pyuria Urine culture grew e. coli only resistant to ampicillin NS IVF reduced to 100 in light of small pleural effusions on chest CT Continue Primaxin 500 mg IVPB q6h (09/22) Zofran PRN Tylenol for fevers Renal US shows no nephrolithiasis, no hydronephrosis CTAP shows left pyelonephritis, no hydronephrosis or nephrolithiasis ABG (09/23) with shock panel shows lactate is 1.3 ABG (09/24) with shock panel shows lactate is 1.0 F/u repeat urinalysis with culture and sensitivity, repeat BCx2 Multifocal Pneumonia, likely CAP as developed within 48 hours of admission Possible aspiration pneumonia Chest CT shows multi-focal infiltrates, small bilateral pleural effusions Chest CTA ordered today to rule out PE as pt persistently tachycardic and complains of sob on exertion shows No evidence of pulmonary embolism. Limited examination for evaluation of subsegmental pumonary artery branches. Small bilateral pleural effusion. Increasing bilateral lower lobe infiltrates with mild patchy bilateral upper lobe infiltrates new since prior examination. 3.4 cm rounded soft tissue density structure in the subcarinal space. 09/23 ABG shows respiratory alkalosis, po2 is 49. Normal lactate O2 via NC 2L 09/24 ABG shows respiratory alkalosis, pO2 is 67 on 3L NC. Normal lactate Legionella, strep pneumo antigen, mycoplasma pneumoniae negative Azithromycin 500 mg IVPB once daily discontinued 09/24 Hypokalemia-acute Replete as needed Gross Hematuria, chronic-resolved UA as above Renal US as above CTAP as above PPx hematuria resolved, heparin 5000 u sc q12 SCDs HHD Lactobacillus Case discussed with Dr. Kendra Long PGY1 <Angel Gardner H - Last Filed: 09/24/18 17:17> Objective - Vital Signs/Intake and Output Vital Signs (last 24 hours): Temp Pulse Resp BP Pulse Ox 98.1 F 106 H 18 143/90 98 09/24/18 15:30 09/24/18 15:25 09/24/18 15:25 09/24/18 15:25 09/24/18 15:25 Intake and Output: 09/24/18 09/24/18 06:59 18:59 Intake Total 940 Balance 940 - Medications Medications: Current Medications Acetaminophen (Tylenol 325mg Tab) 650 mg PO Q6 PRN PRN Reason: Fever >100.4 F Last Admin: 09/23/18 12:20 Dose: 650 mg Heparin Sodium (Porcine) (Heparin) 5,000 units SC Q12 [facility] Last Admin: 09/24/18 10:12 Dose: 5,000 units Imipenem/Cilastatin Sodium 500 (mg/ Sodium Chloride) 100 mls @ 100 mls/hr IVPB Q6H [facility]; Protocol Last Admin: 09/24/18 11:12 Dose: 100 mls/hr Azithromycin 500 mg/ Sodium (Chloride) 250 mls @ 250 mls/hr IVPB DAILY [facility]; Protocol Last Admin: 09/24/18 10:12 Dose: 250 mls/hr Ketorolac Tromethamine (Toradol) 30 mg IVP Q12 PRN PRN Reason: Pain, moderate (4-7) Last Admin: 09/23/18 22:30 Dose: 30 mg Lactobacillus Acidophilus (Lactobacillus) 1 cap PO BID [facility]ANDA Last Admin: 09/24/18 09:27 Dose: 1 cap Ondansetron HCl (Zofran Inj) 4 mg IVP Q4 PRN PRN Reason: Nausea/Vomiting - Labs Labs: 09/24/18 06:50 09/24/18 06:50 Attending/Attestation - Attestation I have personally seen and examined this patient.: Yes I have fully participated in the care of the patient.: Yes I have reviewed all pertinent clinical information, including history, physical exam and plan: Yes Notes (Text): 09/24/18 17:14 Medical attending: Patient was seen and examined by me. Agree with the above note by the resident The patient was still having coughing today and a CTA was done to assess for PE - this was negative however as mentioned previously she does have the pneumonia. WBC is stable at this time. We will have to repeat the CXRAY tommorow to follow her progression as well.
[2018-09-24 07:24] LABS: BASO % 0.3 % (0.0-2.0); EOS # 0.1 K/uL (0.0-0.7); EOS % 0.9 % (0.0-4.0); HEMOGLOBIN 10.7 g/dL (11.0-16.0); LYMPH % 15.9 % (20.0-40.0); MEAN CELL VOLUME 94.1 fL (81.0-99.0); MEAN CORPUSCULAR HEMOGLOBIN 32.1 pg (27.0-31.0); MEAN CORPUSCULAR HGB CONC 34.1 g/dL (33.0-37.0); MEAN PLATELET VOLUME 8.4 fL (7.2-11.7); MONO # 1.1 K/uL (0.0-0.8); MONO % 8.6 % (0.0-10.0); NEUT # 9.4 K/uL (1.8-7.0); NEUT % 74.3 % (50.0-75.0); RBC 3.34 Mil/uL (3.80-5.20); RED CELL DISTRIBUTION WIDTH 13.4 % (11.5-14.5); WHITE BLOOD COUNT 12.6 K/uL (4.8-10.8)
[2018-09-24 07:39] LABS: ALB/GLOB RATIO 0.9 (1.0-2.1); ALBUMIN 3.2 g/dL (3.5-5.0); ALT/SGPT 24 U/L (9-52); AST/SGOT 28 U/L (14-36); BLOOD UREA NITROGEN 5 mg/dL (7-17); CALCIUM 8.2 mg/dl (8.6-10.4); GFR NON-AFRICAN AMERICAN > 60
[2018-09-24] MEDS ORDERED: Potassium Chloride 20 mEq ER Tab PO ONE (09:02)
[2018-09-24] MEDS: Lactobacillus Acidophilus 500 MU Cap PO SCH ×2 (09:27→17:34)
[2018-09-24] MEDS: Azithromycin 500 MG in Sodium Chloride 0.9% 250 ML IVPB SCH (10:12)
[2018-09-24] MEDS ORDERED: Iodixanol 320 MG/ML 100 ML BOTTLE IV ONE (12:10)
--- NOTE | 2018-09-24 13:16 | CT ---
Date of service: 09/24/2018 PROCEDURE: CT Chest with contrast (Pulmonary Angiogram) HISTORY: cp, hypoxia on ABG, sepsis COMPARISON: 09/23/2018 CT chest TECHNIQUE: Axial computed tomography images were obtained of the chest in the pulmonary arterial phase of enhancement. Coronal and sagittal reformatted images were created and reviewed. Intravenous contrast dose: 100 mL Visipaque 320 Radiation dose: Total exam DLP = 549.43 mGy-cm. This CT exam was performed using one or more of the following dose reduction techniques: Automated exposure control, adjustment of the mA and/or kV according to patient size, and/or use of iterative reconstruction technique. FINDINGS: PULMONARY ARTERIES: Technically limited. No evidence of a central pulmonary embolism. Unable to evaluate subsegmental and some segmental pulmonary artery branches. AORTA: No acute findings. No thoracic aortic aneurysm. No aortic atherosclerotic calcification or mural plaque present. LUNGS: Worsening bilateral lower lobe infiltrates. Patchy bilateral upper lobe infiltrates, not evident on previous examination. PLEURAL SPACES: Small bilateral pleural effusion. No pneumothorax. HEART: Unremarkable. No cardiomegaly. No significant pericardial effusion. LYMPH NODES: Shotty subcentimeter mediastinal lymph nodes. There is a rounded soft tissue mass in the subcarinal space measuring approximately 3.4 cm in diameter. This measures 27 Hounsfield units in attenuation. Differential diagnosis includes lymphadenopathy or esophageal duplication cyst or neurenteric cyst. BONES, CHEST WALL: Unremarkable. No fracture or destructive lesion OTHER FINDINGS: Unremarkable. IMPRESSION: No evidence of pulmonary embolism. Limited examination for evaluation of subsegmental and some segmental pulmonary artery branches. Small bilateral pleural effusion. Increasing bilateral lower lobe infiltrates with mild patchy bilateral upper lobe infiltrates new since prior examination. 3.4 cm rounded soft tissue density structure in the subcarinal space. Differential diagnosis as above.
[2018-09-24 16:27] LABS: ABG ALLEN TEST POS; ARTERIAL BLOOD GAS HCO3 24.1 mmol/L (21-28); ARTERIAL BLOOD GAS O2 SAT 97.8 % (95-98); ARTERIAL BLOOD GAS PCO2 30 mm/Hg (35-45); ARTERIAL BLOOD GAS PH 7.47 (7.35-7.45); ARTERIAL BLOOD GAS PO2 67 mm/Hg (80-100); ARTERIAL BLOOD GAS TCO2 22.7 mmol/L (22-28)
[2018-09-25 06:46] LABS: BASO # 0.1 K/uL (0.0-0.2); BASO % 0.7 % (0.0-2.0); EOS # 0.3 K/uL (0.0-0.7); EOS % 2.5 % (0.0-4.0); HEMOGLOBIN 10.4 g/dL (11.0-16.0); LYMPH # 2.8 K/uL (1.0-4.3); LYMPH % 24.8 % (20.0-40.0); MEAN CORPUSCULAR HEMOGLOBIN 31.6 pg (27.0-31.0); MEAN PLATELET VOLUME 7.9 fL (7.2-11.7); MONO % 8.9 % (0.0-10.0); NEUT # 7.3 K/uL (1.8-7.0); NEUT % 63.1 % (50.0-75.0); RBC 3.29 Mil/uL (3.80-5.20); RED CELL DISTRIBUTION WIDTH 13.3 % (11.5-14.5); WHITE BLOOD COUNT 11.5 K/uL (4.8-10.8)
[2018-09-25 06:57] LABS: ALBUMIN 3.3 g/dL (3.5-5.0); ALT/SGPT 34 U/L (9-52); AST/SGOT 48 U/L (14-36); BLOOD UREA NITROGEN 4 mg/dL (7-17); CALCIUM 8.5 mg/dl (8.6-10.4); GFR NON-AFRICAN AMERICAN > 60
[2018-09-25] MEDS ORDERED: Potassium Chloride 20 mEq ER Tab PO ONE ×2 (08:21→14:00)
--- NOTE | 2018-09-25 09:05 | RAD ---
Chest x-ray single frontal view HISTORY: Pneumonia. Comparison: 09/25/2018 FINDINGS: Moderate to severe venous congestion. Patchy increased markings at the bilateral lung bases with associated bilateral pleural effusions. Focal nodular consolidation within the right infrahilar region. Cardiomegaly. Degenerative changes in the spine and shoulders. Impression: Moderate to severe venous congestion. Patchy increased markings at the bilateral lung bases with associated bilateral pleural effusions. Focal nodular consolidation within the right infrahilar region. Cardiomegaly.
[2018-09-25] MEDS: Lactobacillus Acidophilus 500 MU Cap PO SCH ×2 (09:15→18:05)
--- NOTE | 2018-09-25 10:15 | CP.PCM.PN ---
<Ananda Long - Last Filed: 09/25/18 12:43> Subjective - Date & Time of Evaluation Date of Evaluation: 09/25/18 Time of Evaluation: 09:30 - Subjective Subjective: PGY1 medicine progress note for Dr. Gardner Pt seen and examined at bedside. Reports minimal rightsided lower back pain/flank pain. Describes intermittent sob, dry cough. Denies chills, chest pain, pleuritic chest pain, palpitation, abdominal pain, n/v/d, hematochezia, melena, lightheadedness, dizziness, headache. Objective - Vital Signs/Intake and Output Vital Signs (last 24 hours): Temp Pulse Resp BP Pulse Ox 98.1 F 86 20 143/87 97 09/25/18 07:00 09/25/18 07:00 09/25/18 07:00 09/25/18 07:00 09/25/18 07:00 Intake and Output: 09/25/18 09/25/18 06:59 18:59 Intake Total 560 Balance 560 - Medications Medications: Current Medications Acetaminophen (Tylenol 325mg Tab) 650 mg PO Q6 PRN PRN Reason: Fever >100.4 F Last Admin: 09/23/18 12:20 Dose: 650 mg Heparin Sodium (Porcine) (Heparin) 5,000 units SC Q12 [facility] Last Admin: 09/25/18 09:15 Dose: 5,000 units Imipenem/Cilastatin Sodium 500 (mg/ Sodium Chloride) 100 mls @ 100 mls/hr IVPB Q6H [facility]; Protocol Last Admin: 09/25/18 05:41 Dose: 100 mls/hr Azithromycin 500 mg/ Sodium (Chloride) 250 mls @ 250 mls/hr IVPB DAILY [facility]; Protocol Last Admin: 09/24/18 10:12 Dose: 250 mls/hr Ketorolac Tromethamine (Toradol) 30 mg IVP Q12 PRN PRN Reason: Pain, moderate (4-7) Last Admin: 09/23/18 22:30 Dose: 30 mg Lactobacillus Acidophilus (Lactobacillus) 1 cap PO BID [facility] Last Admin: 09/25/18 09:15 Dose: 1 cap Ondansetron HCl (Zofran Inj) 4 mg IVP Q4 PRN PRN Reason: Nausea/Vomiting - Labs Labs: 09/25/18 06:38 09/25/18 06:38 - Additional Findings Additional findings: - Constitutional Appears: Non-toxic, No Acute Distress - Head Exam Head Exam: ATRAUMATIC, NORMAL INSPECTION - Eye Exam Eye Exam: EOMI, Normal appearance - ENT Exam ENT Exam: Mucous Membranes Moist - Respiratory Exam Respiratory Exam: Rales to the apices bilaterally, worse at the bases. absent: Rhonchi, Wheezes, Respiratory Distress, Stridor - Cardiovascular Exam Cardiovascular Exam: RRR, +S1, +S2; no tachycardia - GI/Abdominal Exam GI & Abdominal Exam: Soft, Normal Bowel Sounds. absent: Distended, Firm, Guarding, Rigid, Tenderness (no suprapubic tenderness) Additional comments: (-) sahni's sign - Extremities Exam Extremities Exam: Normal Capillary Refill. absent: Calf Tenderness, Pedal Edema, Tenderness - Back Exam Back Exam: CVA tenderness (R). Absent left sided cva tendenress - Neurological Exam Neurological Exam: Alert, Awake, Normal Gait - Psychiatric Exam Psychiatric exam: Normal Affect, Normal Mood - Skin Skin Exam: Dry, Normal Color, Warm Assessment and Plan - Assessment and Plan (Free Text) Plan: This is a 38 year old female with PMH of nephrolithiasis, who presents with fever, back pain, hematuria and pain on urination for the past 3 days. Plan: Sepsis secondary to pyelonephritis, PNA Pyelonephritis Lats fever was 100.9 ( 09/23 12:20) Leukocytosis is downtrending, with left shift, no bandemia UA shows leukocyte esterase, bacteria, pyuria Urine culture grew e. coli only resistant to ampicillin Blood culture x2 (09/21) negative for 3 days NS IVF reduced to 100 in light of small pleural effusions on chest CT Continue Primaxin 500 mg IVPB q6h (09/22) Zofran PRN Tylenol for fevers Renal US shows no nephrolithiasis, no hydronephrosis CTAP shows left pyelonephritis, no hydronephrosis or nephrolithiasis ABG (09/23) with shock panel shows lactate is 1.3 ABG (09/24) with shock panel shows lactate is 1.0 Repeat urinalysis shows 3+ blood, repeat Ucx is negative F/u repeat BCx2 Multifocal Pneumonia, likely CAP as developed within 48 hours of admission Possible aspiration pneumonia Pulmonary edema Chest CT shows multi-focal infiltrates, small bilateral pleural effusions Chest CTA ordered today to rule out PE as pt persistently tachycardic and compla ins of sob on exertion shows No evidence of pulmonary embolism. Limited examination for evaluation of subsegmental pumonary artery branches. Small bilateral pleural effusion. Increasing bilateral lower lobe infiltrates with mild patchy bilateral upper lobe infiltrates new since prior examination. 3.4 cm rounded soft tissue density structure in the subcarinal space. 09/23 ABG shows respiratory alkalosis, po2 is 49. Normal lactate O2 via NC 2L 09/24 ABG shows respiratory alkalosis, pO2 is 67 on 3L NC. Normal lactate Legionella, strep pneumo antigen, mycoplasma pneumoniae negative Azithromycin 500 mg IVPB once daily discontinued 09/24 CXR 09/25 shows moderate to severe venous congestion. Patchy increased markings at th ebilateral lung bases with associated bilateral pleural effusions. Focal nod ular consolidation within the right infrahilar region. Cardiomegaly. F/u Echocardiogram Will give Lasix 20 mg IVP now, and Lasix 20 mg IVP in the afternoon as pt's potassium is to be repleted prior to second administration Hypokalemia-acute Replete as needed Gross Hematuria, chronic-resolved UA as above Renal US as above CTAP as above PPx hematuria resolved, heparin 5000 u sc q12 SCDs HHD Lactobacillus Case discussed with Dr. Kendra Long PGY1 <Angel Gardner H - Last Filed: 09/25/18 13:36> Objective - Vital Signs/Intake and Output Vital Signs (last 24 hours): Temp Pulse Resp BP Pulse Ox 98.1 F 80 20 130/85 97 09/25/18 07:00 09/25/18 10:40 09/25/18 07:00 09/25/18 10:40 09/25/18 07:00 Intake and Output: 09/25/18 09/25/18 06:59 18:59 Intake Total 560 Balance 560 - Medications Medications: Current Medications Acetaminophen (Tylenol 325mg Tab) 650 mg PO Q6 PRN PRN Reason: Fever >100.4 F Last Admin: 09/23/18 12:20 Dose: 650 mg Furosemide (Lasix) 20 mg IVP ONCE ONE Stop: 09/25/18 16:01 Heparin Sodium (Porcine) (Heparin) 5,000 units SC Q12 [facility] Last Admin: 09/25/18 09:15 Dose: 5,000 units Imipenem/Cilastatin Sodium 500 (mg/ Sodium Chloride) 100 mls @ 100 mls/hr IVPB Q6H [facility]; Protocol Last Admin: 09/25/18 10:42 Dose: 100 mls/hr Ketorolac Tromethamine (Toradol) 30 mg IVP Q12 PRN PRN Reason: Pain, moderate (4-7) Last Admin: 09/23/18 22:30 Dose: 30 mg Lactobacillus Acidophilus (Lactobacillus) 1 cap PO BID [facility] Last Admin: 09/25/18 09:15 Dose: 1 cap Ondansetron HCl (Zofran Inj) 4 mg IVP Q4 PRN PRN Reason: Nausea/Vomiting Potassium Chloride (K-Dur 20 Meq Er Tab) 40 meq PO ONCE ONE Stop: 09/25/18 14:01 Last Admin: 09/25/18 13:18 Dose: 40 meq - Labs Labs: 09/25/18 06:38 09/25/18 06:38 Attending/Attestation - Attestation I have personally seen and examined this patient.: Yes I have fully participated in the care of the patient.: Yes I have reviewed all pertinent clinical information, including history, physical exam and plan: Yes Notes (Text): 09/25/18 13:28 Medical attending: Patient was seen and examined by me. Agree with the above note by the resident The patient explained she had some cough this morning - the chest XRAY does show a lot of congestion. We encouraged ambulate in the hallway as she has been laying down a lot We also gave lasix this morning and also K replacement. She will have additional lasix this afternoon after giving K She is going to have an echo as well. Probably she has the congestion from all the IVF she got when she was more septic I walked with her and she was able to walk completely around the hallway of 5T with family members WBC decreased again. Remains on the Primaxin Angel Gardner
[2018-09-25] MEDS: Azithromycin 500 MG in Sodium Chloride 0.9% 250 ML IVPB SCH (10:18)
[2018-09-26] MEDS: Lactobacillus Acidophilus 500 MU Cap PO SCH ×2 (09:01→17:22)
[2018-09-26 09:05] LABS: BASO # 0.1 K/uL (0.0-0.2); BASO % 0.9 % (0.0-2.0); EOS # 0.3 K/uL (0.0-0.7); HEMOGLOBIN 11.9 g/dL (11.0-16.0); LYMPH # 2.7 K/uL (1.0-4.3); LYMPH % 24.3 % (20.0-40.0); MEAN CELL VOLUME 94.1 fL (81.0-99.0); MEAN CORPUSCULAR HEMOGLOBIN 32.2 pg (27.0-31.0); MEAN CORPUSCULAR HGB CONC 34.2 g/dL (33.0-37.0); MEAN PLATELET VOLUME 7.7 fL (7.2-11.7); MONO # 0.7 K/uL (0.0-0.8); MONO % 6.7 % (0.0-10.0); NEUT # 7.1 K/uL (1.8-7.0); NEUT % 65.1 % (50.0-75.0); RBC 3.71 Mil/uL (3.80-5.20); RED CELL DISTRIBUTION WIDTH 13.7 % (11.5-14.5)
[2018-09-26 09:50] LABS: ALB/GLOB RATIO 0.9 (1.0-2.1); ALBUMIN 3.8 g/dL (3.5-5.0); ALT/SGPT 60 U/L (9-52); AST/SGOT 77 U/L (14-36); BLOOD UREA NITROGEN 10 mg/dL (7-17); CALCIUM 8.9 mg/dl (8.6-10.4); GFR NON-AFRICAN AMERICAN > 60
[2018-09-26] MEDS: Naproxen 275 mg Tab PO SCH ×2 (11:45→17:22)
--- NOTE | 2018-09-26 12:36 | RAD ---
Chest x-ray single frontal view HISTORY: Pulmonary edema. COMPARISON: 09/25/2018 Findings: Moderate venous congestion. Bilateral hilar prominence. Tortuous ectatic aorta. Mild cardiomegaly. Degenerative changes in the spine and shoulders. Impression: Moderate venous congestion. Bilateral hilar prominence. Tortuous ectatic aorta. Mild cardiomegaly.
--- NOTE | 2018-09-26 13:26 | CP.PCM.PN ---
Subjective - Date & Time of Evaluation Date of Evaluation: 09/26/18 Time of Evaluation: 12:00 - Subjective Subjective: PGY1 medicine progress note for Dr. Gardner Pt seen and examined at bedside. Back pain is resolved. Still has dry cough, improving. Denies chills, chest pain, pleuritic chest pain, palpitation, abdominal pain, n/v/d, hematochezia, melena, lightheadedness, dizziness, headache. Objective - Vital Signs/Intake and Output Vital Signs (last 24 hours): Temp Pulse Resp BP Pulse Ox 98.0 F 67 20 118/74 95 09/26/18 07:51 09/26/18 07:51 09/26/18 07:51 09/26/18 07:51 09/26/18 07:51 Intake and Output: 09/26/18 09/26/18 06:59 18:59 Intake Total 500 Balance 500 - Medications Medications: Current Medications Acetaminophen (Tylenol 325mg Tab) 650 mg PO Q6 PRN PRN Reason: Fever >100.4 F Last Admin: 09/23/18 12:20 Dose: 650 mg Heparin Sodium (Porcine) (Heparin) 5,000 units SC Q12 [facility] Last Admin: 09/26/18 09:01 Dose: 5,000 units Imipenem/Cilastatin Sodium 500 (mg/ Sodium Chloride) 100 mls @ 100 mls/hr IVPB Q6H REPLACED BY [facility]; Protocol Last Admin: 09/26/18 10:48 Dose: 100 mls/hr Lactobacillus Acidophilus (Lactobacillus) 1 cap PO BID REPLACED BY [facility] Last Admin: 09/26/18 09:01 Dose: 1 cap Naproxen (Anaprox) 275 mg PO BID REPLACED BY [facility] Last Admin: 09/26/18 11:45 Dose: 275 mg Ondansetron HCl (Zofran Inj) 4 mg IVP Q4 PRN PRN Reason: Nausea/Vomiting - Labs Labs: 09/26/18 08:52 09/26/18 08:52 - Additional Findings Additional findings: - Constitutional Appears: Non-toxic, No Acute Distress - Head Exam Head Exam: ATRAUMATIC, NORMAL INSPECTION - Eye Exam Eye Exam: EOMI, Normal appearance - ENT Exam ENT Exam: Mucous Membranes Moist - Respiratory Exam Respiratory Exam: Bilateral rales to the bases only. absent: Rhonchi, Wheezes, Respiratory Distress, Stridor - Cardiovascular Exam Cardiovascular Exam: RRR, +S1, +S2; no tachycardia - GI/Abdominal Exam GI & Abdominal Exam: Soft, Normal Bowel Sounds. absent: Distended, Firm, Guarding, Rigid, Tenderness (no suprapubic tenderness) Additional comments: (-) sahni's sign - Extremities Exam Extremities Exam: Normal Capillary Refill. absent: Calf Tenderness, Pedal Edema, Tenderness - Back Exam Back Exam: CVA tenderness (R). Absent left sided cva tenderness - Neurological Exam Neurological Exam: Alert, Awake, Normal Gait - Psychiatric Exam Psychiatric exam: Normal Affect, Normal Mood - Skin Skin Exam: Dry, Normal Color, Warm Assessment and Plan - Assessment and Plan (Free Text) Assessment: This is a 38 year old female with PMH of nephrolithiasis, who presents with fever, back pain, hematuria and pain on urination for the past 3 days. Plan: Sepsis secondary to pyelonephritis, PNA Pyelonephritis Last fever was 100.9 ( 09/23 12:20) Leukocytosis continues to downtrend, with left shift, no bandemia UA shows leukocyte esterase, bacteria, pyuria Urine culture grew e. coli only resistant to ampicillin NS IVF reduced to 100 in light of small pleural effusions on chest CT Continue Primaxin 500 mg IVPB q6h (09/22) Zofran PRN Tylenol for fevers Renal US shows no nephrolithiasis, no hydronephrosis CTAP shows left pyelonephritis, no hydronephrosis or nephrolithiasis ABG (09/23) with shock panel shows lactate is 1.3 ABG (09/24) with shock panel shows lactate is 1.0 Blood culture x2 (09/21) negative for 4 days Repeat urinalysis shows 3+ blood, repeat Ucx is negative Repeat BCx (09/24) shows no growth for the past 48 hours Multifocal Pneumonia, likely CAP as developed within 48 hours of admission, acute Possible aspiration pneumonia Pulmonary edema, improving Chest CT shows multi-focal infiltrates, small bilateral pleural effusions Chest CTA ordered today to rule out PE as pt persistently tachycardic and complains of sob on exertion shows No evidence of pulmonary embolism. Limited examination for evaluation of subsegmental pumonary artery branches. Small bilateral pleural effusion. Increasing bilateral lower lobe infiltrates with mild patchy bilateral upper lobe infiltrates new since prior examination. 3.4 cm rounded soft tissue density structure in the subcarinal space. 09/23 ABG shows respiratory alkalosis, po2 is 49. Normal lactate O2 via NC 2L 09/24 ABG shows respiratory alkalosis, pO2 is 67 on 3L NC. Normal lactate Legionella, strep pneumo antigen, mycoplasma pneumoniae negative Azithromycin 500 mg IVPB once daily discontinued 09/24 CXR 09/25 shows moderate to severe venous congestion. Patchy increased markings at th ebilateral lung bases with associated bilateral pleural effusions. Focal nodular consolidation within the right infrahilar region. Cardiomegaly. F/u Echocardiogram Will give Lasix 20 mg IVP now, and Lasix 20 mg IVP in the afternoon as pt's potassium is to be repleted prior to second administration CXR 09/26 shows moderate venous congestion. Bilateral hilar prominence. Tortuous ectatic aorta. Mild cardiomegaly. Hypokalemia-acute Replete as needed Hematuria, chronic Gross Hematuria, -resolved UA as above Renal US as above CTAP as above PPx hematuria resolved, heparin 5000 u sc q12 SCDs HHD Lactobacillus Case discussed with Dr. Kendra Long PGY1
[2018-09-27 01:35] VITALS: RESP 20
--- NOTE | 2018-09-27 07:23 | CP.PCM.PN ---
Subjective - Date & Time of Evaluation Date of Evaluation: 09/27/18 Time of Evaluation: 07:21 - Subjective Subjective: Resident Progress Note for Hospitalist Service Objective - Vital Signs/Intake and Output Vital Signs (last 24 hours): Temp Pulse Resp BP Pulse Ox 97.9 F 72 20 100/68 95 09/26/18 23:00 09/26/18 23:00 09/26/18 23:00 09/26/18 23:00 09/26/18 23:00 Intake and Output: 09/27/18 09/27/18 06:59 18:59 Intake Total 500 Balance 500 - Medications Medications: Current Medications Acetaminophen (Tylenol 325mg Tab) 650 mg PO Q6 PRN PRN Reason: Fever >100.4 F Last Admin: 09/23/18 12:20 Dose: 650 mg Heparin Sodium (Porcine) (Heparin) 5,000 units SC Q12 [facility] Last Admin: 09/26/18 22:37 Dose: 5,000 units Imipenem/Cilastatin Sodium 500 (mg/ Sodium Chloride) 100 mls @ 100 mls/hr IVPB Q6H [facility]; Protocol Last Admin: 09/27/18 05:05 Dose: 100 mls/hr Lactobacillus Acidophilus (Lactobacillus) 1 cap PO BID [facility] Last Admin: 09/26/18 17:22 Dose: 1 cap Naproxen (Anaprox) 275 mg PO BID [facility] Last Admin: 09/26/18 17:22 Dose: 275 mg Ondansetron HCl (Zofran Inj) 4 mg IVP Q4 PRN PRN Reason: Nausea/Vomiting - Labs Labs: 09/26/18 08:52 09/26/18 08:52 - Constitutional Appears: Non-toxic, No Acute Distress - Head Exam Head Exam: ATRAUMATIC, NORMAL INSPECTION - Eye Exam Eye Exam: EOMI, Normal appearance - ENT Exam ENT Exam: Mucous Membranes Moist - Respiratory Exam Respiratory Exam: Bilateral rales to the bases only. absent: Rhonchi, Wheezes, Respiratory Distress, Stridor - Cardiovascular Exam Cardiovascular Exam: RRR, +S1, +S2; no tachycardia - GI/Abdominal Exam GI & Abdominal Exam: Soft, Normal Bowel Sounds. absent: Distended, Firm, Guarding, Rigid, Tenderness (no suprapubic tenderness) - Extremities Exam Extremities Exam: Normal Capillary Refill. absent: Calf Tenderness, Pedal Edema, Tenderness - Back Exam Back Exam: CVA tenderness (R). Absent left sided cva tenderness - Neurological Exam Neurological Exam: Alert, Awake, Normal Gait - Psychiatric Exam Psychiatric exam: Normal Affect, Normal Mood - Skin Skin Exam: Dry, Normal Color, Warm Assessment and Plan - Assessment and Plan (Free Text) Assessment: Patient is a 38 year old female with PMH of nephrolithiasis, who presents with fever, back pain, hematuria and dysuria Plan: Sepsis secondary to pyelonephritis, PNA Pyelonephritis Last fever was 100.9 ( 09/23 12:20) Leukocytosis continues to downtrend, with left shift, no bandemia UA shows leukocyte esterase, bacteria, pyuria Urine culture grew e. coli only resistant to ampicillin NS IVF reduced to 100 in light of small pleural effusions on chest CT Continue Primaxin 500 mg IVPB q6h (09/22) Zofran PRN Tylenol for fevers Renal US shows no nephrolithiasis, no hydronephrosis CTAP shows left pyelonephritis, no hydronephrosis or nephrolithiasis ABG (09/23) with shock panel shows lactate is 1.3 ABG (09/24) with shock panel shows lactate is 1.0 Blood culture x2 (09/21) negative for 4 days Repeat urinalysis shows 3+ blood, repeat Ucx is negative Repeat BCx (09/24) shows no growth for the past 48 hours Multifocal Pneumonia, likely CAP as developed within 48 hours of admission, acute Possible aspiration pneumonia Pulmonary edema, improving Chest CT shows multi-focal infiltrates, small bilateral pleural effusions Chest CTA ordered today to rule out PE as pt persistently tachycardic and complains of sob on exertion shows No evidence of pulmonary embolism. Limited examination for evaluation of subsegmental pumonary artery branches. Small bilateral pleural effusion. Increasing bilateral lower lobe infiltrates with mild patchy bilateral upper lobe infiltrates new since prior examination. 3.4 cm rounded soft tissue density structure in the subcarinal space. 09/23 ABG shows respiratory alkalosis, po2 is 49. Normal lactate O2 via NC 2L 09/24 ABG shows respiratory alkalosis, pO2 is 67 on 3L NC. Normal lactate Legionella, strep pneumo antigen, mycoplasma pneumoniae negative Azithromycin 500 mg IVPB once daily discontinued 09/24 CXR 09/25 shows moderate to severe venous congestion. Patchy increased markings at th ebilateral lung bases with associated bilateral pleural effusions. Focal nodular consolidation within the right infrahilar region. Cardiomegaly. F/u Echocardiogram Will give Lasix 20 mg IVP now, and Lasix 20 mg IVP in the afternoon as pt's potassium is to be repleted prior to second administration CXR 09/26 shows moderate venous congestion. Bilateral hilar prominence. Tortuous ectatic aorta. Mild cardiomegaly. Hypokalemia-acute Replete as needed Hematuria, chronic Gross Hematuria, -resolved UA as above Renal US as above CTAP as above PPx hematuria resolved, heparin 5000 u sc q12 SCDs [facility]HD Lactobacillus
[2018-09-27] MEDS: Lactobacillus Acidophilus 500 MU Cap PO SCH (09:47)
[2018-09-27] MEDS: Naproxen 275 mg Tab PO SCH (09:59)
[2018-09-27 11:31] LABS: BASO # 0.1 K/uL (0.0-0.2); BASO % 0.5 % (0.0-2.0); EOS # 0.3 K/uL (0.0-0.7); HEMOGLOBIN 12.1 g/dL (11.0-16.0); LYMPH # 2.6 K/uL (1.0-4.3); LYMPH % 16.5 % (20.0-40.0); MEAN CELL VOLUME 94.4 fL (81.0-99.0); MEAN CORPUSCULAR HEMOGLOBIN 32.1 pg (27.0-31.0); MEAN PLATELET VOLUME 7.9 fL (7.2-11.7); MONO # 0.8 K/uL (0.0-0.8); MONO % 5.2 % (0.0-10.0); NEUT # 12.1 K/uL (1.8-7.0); NEUT % 75.8 % (50.0-75.0); NRBC % 0.1 % (0.0-2.0); RBC 3.77 Mil/uL (3.80-5.20); RED CELL DISTRIBUTION WIDTH 13.5 % (11.5-14.5); WHITE BLOOD COUNT 15.9 K/uL (4.8-10.8)
[2018-09-27 11:53] LABS: ALB/GLOB RATIO 0.9 (1.0-2.1); ALBUMIN 3.9 g/dL (3.5-5.0); ALT/SGPT 77 U/L (9-52); AST/SGOT 90 U/L (14-36); BLOOD UREA NITROGEN 11 mg/dL (7-17); CALCIUM 9.5 mg/dl (8.6-10.4); GFR NON-AFRICAN AMERICAN > 60
--- NOTE | 2018-09-27 14:34 | CARD ---
APPROVED REPORT Date of service: 09/27/2018 EXAM: Two-dimensional and M-mode echocardiogram with Doppler and color Doppler. Other Information Technically limited study due to body habitus. INDICATION fever, pulmonary edema 2D DIMENSIONS IVSd1.0 (0.7-1.1cm)LVDd4.7 (3.9-5.9cm) PWd0.9 (0.7-1.1cm)LA [id number] (18-58mL) LVDs3.1 (2.5-4.0cm)FS (%) 32.9 % LVEF (%)61.4 (>50%)LVEF (Chaidez's)64.32 % M-Mode DIMENSIONS Left Atrium (MM)3.74 (2.5-4.0cm)IVSd1.32 (0.7-1.1cm) Aortic Root3.24 (2.2-3.7cm)LVDd6.35 (4.0-5.6cm) Aortic Cusp Exc.2.25 (1.5-2.0cm)PWd1.19 (0.7-1.1cm) FS (%) 31 %LVDs4.35 (2.0-3.8cm) LVEF (%)58 (>50%) Mitral Valve MV E Mtrrasyo02.8cm/sMV A Igcekqqn79.5cm/sE/A ratio1.2 TDI Lateral E' Peak V9.96cm/sMedial E' Peak V6.42cm/sE/Lateral E'7.2 E/Medial E'11.2 Tricuspid Valve TR Peak [id number]/sTR Peak Gr.[id number] LEFT VENTRICLE The left ventricle is normal size. There is normal left ventricular wall thickness. The left ventricular function is normal. The left ventricular ejection fraction is within the normal range. No regional wall motion abnormalities noted. The left ventricular diastolic function is normal. No left ventricle thrombus noted on this study. There is no ventricular septal defect visualized. There is no left ventricular aneurysm. There is no mass noted in the left ventricle. RIGHT VENTRICLE The right ventricle is normal size. There is normal right ventricular wall thickness. The right ventricular systolic function is normal. ATRIA The left atrium size is normal. The right atrium size is normal. The interatrial septum is intact with no evidence for an atrial septal defect. AORTIC VALVE The aortic valve is normal in structure and function. No aortic regurgitation is present. There is no aortic valvular stenosis. There is no aortic valvular vegetation. MITRAL VALVE The mitral valve is normal in structure and function. There is no evidence of mitral valve prolapse. There is no mitral valve stenosis. There is no mitral valve regurgitation noted. TRICUSPID VALVE The tricuspid valve is normal in structure and function. There is no tricuspid valve regurgitation noted. There is no tricuspid valve prolapse or vegetation. There is no tricuspid valve stenosis. PULMONIC VALVE The pulmonary valve is normal in structure and function. There is no pulmonic valvular regurgitation. There is no pulmonic valvular stenosis. GREAT VESSELS The aortic root is normal in size. The ascending aorta is normal in size. The pulmonary artery is normal. The IVC is normal in size and collapses >50% with inspiration. PERICARDIAL EFFUSION The pericardium appears normal. There is no pleural effusion. <Conclusion> The left ventricular function is normal. The left ventricular ejection fraction is within the normal range. No regional wall motion abnormalities noted.
--- NOTE | 2018-09-27 14:56 | CP.PCM.DIS ---
Provider - Provider Date of Admission: 09/21/18 21:35 Attending physician: Hilario Verduzco MD Primary care physician: [facility] Time Spent in preparation of Discharge (in minutes): 35 Diagnosis - Discharge Diagnosis (1) Pyelonephritis Status: Acute (2) UTI (urinary tract infection) Status: Acute Hospital Course - Lab Results Lab Results: Micro Results 09/24/18 14:00 Blood-Venous Blood Culture - Preliminary NO GROWTH AFTER 3 DAYS 09/24/18 14:30 Blood-Venous Blood Culture - Preliminary NO GROWTH AFTER 3 DAYS 09/21/18 20:23 Blood Blood Culture - Final NO GROWTH AFTER 5 DAYS 09/21/18 20:23 Blood Gram Stain - Final TEST NOT PERFORMED 09/21/18 20:23 Blood Blood Culture - Final NO GROWTH AFTER 5 DAYS 09/21/18 20:23 Blood Gram Stain - Final TEST NOT PERFORMED 09/23/18 17:49 Urine,Clean Catch Urine Culture - Final No Growth (<1,000 CFU/ML) 09/21/18 21:52 Urine Random Urine Culture - Final Escherichia Coli Most Recent Lab Values WBC 15.9 K/uL (4.8-10.8) H 09/27/18 11:15 RBC 3.77 Mil/uL (3.80-5.20) L 09/27/18 11:15 Hgb 12.1 g/dL (11.0-16.0) 09/27/18 11:15 Hct 35.6 % (34.0-47.0) 09/27/18 11:15 MCV 94.4 fL (81.0-99.0) 09/27/18 11:15 MCH 32.1 pg (27.0-31.0) H 09/27/18 11:15 MCHC 34.0 g/dL (33.0-37.0) 09/27/18 11:15 RDW 13.5 % (11.5-14.5) 09/27/18 11:15 Plt Count 487 K/uL (130-400) H 09/27/18 11:15 MPV 7.9 fL (7.2-11.7) 09/27/18 11:15 Neut % (Auto) 75.8 % (50.0-75.0) H 09/27/18 11:15 Lymph % (Auto) 16.5 % (20.0-40.0) L 09/27/18 11:15 [place] % (Auto) 5.2 % (0.0-10.0) 09/27/18 11:15 Eos % (Auto) 2.0 % (0.0-4.0) 09/27/18 11:15 Baso % (Auto) 0.5 % (0.0-2.0) 09/27/18 11:15 Neut # (Auto) 12.1 K/uL (1.8-7.0) H 09/27/18 11:15 Lymph # (Auto) 2.6 K/uL (1.0-4.3) 09/27/18 11:15 [place] # (Auto) 0.8 K/uL (0.0-0.8) 09/27/18 11:15 Eos # (Auto) 0.3 K/uL (0.0-0.7) 09/27/18 11:15 Baso # (Auto) 0.1 K/uL (0.0-0.2) 09/27/18 11:15 Neutrophils % (Manual) 80 % (50-75) H 09/21/18 19:21 Lymphocytes % (Manual) 12 % (20-40) L 09/21/18 19:21 Monocytes % (Manual) 7 % (0-10) 09/21/18 19:21 Basophils % (Manual) 1 % (0-2) 09/21/18 19:21 Platelet Estimate Normal (NORMAL) 09/21/18 19:21 Puncture Site Rra 09/24/18 16:20 pCO2 30 mm/Hg (35-45) L 09/24/18 16:20 pO2 67 mm/Hg (80-100) L 09/24/18 16:20 HCO3 24.1 mmol/L (21-28) 09/24/18 16:20 ABG pH 7.47 (7.35-7.45) H 09/24/18 16:20 ABG Total CO2 22.7 mmol/L (22-28) 09/24/18 16:20 ABG O2 Saturation 97.8 % (95-98) 09/24/18 16:20 ABG Base Excess -0.9 mmol/L (-2.0-3.0) 09/24/18 16:20 Edgar Test Pos 09/24/18 16:20 ABG Potassium 2.9 mmol/L (3.6-5.2) L 09/24/18 16:20 A-a O2 Difference 124.0 mm/Hg 09/24/18 16:20 Respiratory Index 1.9 09/24/18 16:20 Sodium 139.0 mmol/l (132-148) 09/24/18 16:20 Chloride 112.0 mmol/L (98-107) H 09/24/18 16:20 Glucose 127 mg/dl (65-105) H 09/24/18 16:20 Lactate 1.0 mmol/L (0.7-2.1) 09/24/18 16:20 Liter Flow 3.0 09/24/18 16:20 FiO2 32.0 % 09/24/18 16:20 Sodium 139 mmol/L (132-148) 09/27/18 11:15 Potassium 4.3 mmol/L (3.6-5.2) 09/27/18 11:15 Chloride 101 mmol/L (98-107) 09/27/18 11:15 Carbon Dioxide 25 mmol/L (22-30) 09/27/18 11:15 Anion Gap 17 (10-20) 09/27/18 11:15 BUN 11 mg/dL (7-17) 09/27/18 11:15 Creatinine 0.6 mg/dL (0.7-1.2) L 09/27/18 11:15 Est GFR ( Amer) > 60 09/27/18 11:15 Est GFR (Non-Af Amer) > 60 09/27/18 11:15 Random Glucose 110 mg/dL (65-105) H 09/27/18 11:15 Lactic Acid 0.9 mmol/L (0.7-2.1) 09/21/18 22:10 Calcium 9.5 mg/dl (8.6-10.4) 09/27/18 11:15 Phosphorus 3.3 mg/dL (2.5-4.5) 09/27/18 11:15 Magnesium 2.2 mg/dL (1.6-2.3) 09/27/18 11:15 Total Bilirubin 0.3 mg/dL (0.2-1.3) 09/27/18 11:15 AST 90 U/L (14-36) H 09/27/18 11:15 ALT 77 U/L (9-52) H D 09/27/18 11:15 Alkaline Phosphatase 95 U/L (38-126) 09/27/18 11:15 Total Protein 8.3 g/dL (6.3-8.3) 09/27/18 11:15 Albumin 3.9 g/dL (3.5-5.0) 09/27/18 11:15 Globulin 4.4 gm/dL (2.2-3.9) H 09/27/18 11:15 Albumin/Globulin Ratio 0.9 (1.0-2.1) L 09/27/18 11:15 Arterial Blood Potassium 2.9 mmol/L (3.6-5.2) L 09/24/18 16:20 Urine Color Straw (YELLOW) 09/23/18 17:49 Urine Clarity Clear (Clear) 09/23/18 17:49 Urine pH 7.0 (5.0-8.0) 09/23/18 17:49 Ur Specific [place] 1.003 (1.003-1.030) 09/23/18 17:49 Urine Protein Negative mg/dL (NEGATIVE) 09/23/18 17:49 Urine Glucose (UA) Normal mg/dL (Normal) 09/23/18 17:49 Urine Ketones Negative mg/dL (NEGATIVE) 09/23/18 17:49 Urine Blood 3+ (NEGATIVE) H 09/23/18 17:49 Urine Nitrate Negative (NEGATIVE) 09/23/18 17:49 Urine Bilirubin Negative (NEGATIVE) 09/23/18 17:49 Urine Urobilinogen 2.0 mg/dL (0.2-1.0) H 09/23/18 17:49 Ur Leukocyte Esterase Neg Yash/uL (Negative) 09/23/18 17:49 Urine WBC (Auto) 2 /hpf (0-5) 09/23/18 17:49 Urine RBC (Auto) 24 /hpf (0-3) H 09/23/18 17:49 Urine WBC Clumps (Auto) Many /hpf (NONE) H 09/21/18 20:00 Ur Squamous Epith Cells < 1 /hpf (0-5) 09/23/18 17:49 HIV 1&2 Antibody Screen Negative (NEGATIVE) 09/23/18 14:49 Ur L.pneumophila Ag Negative (NEGATIVE) 09/23/18 16:10 Mycoplasma pneumon IgM Negative (NEGATIVE) 09/23/18 14:49 S.pneumoniae Type 1 IgG <0.3 09/23/18 14:49 S.pneumoniae Type 3 IgG <0.3 09/23/18 14:49 S.pneumoniae Type 4 IgG <0.3 09/23/18 14:49 S.pneumoniae Type 5 IgG <0.3 09/23/18 14:49 S.pneumoniae Type 8 IgG <0.3 09/23/18 14:49 S.pneumoniae Type 9 IgG 0.4 09/23/18 14:49 S.pneumoniae Typ 12 IgG <0.3 09/23/18 14:49 S.pneumoniae Typ 14 IgG 3.9 09/23/18 14:49 S.pneumonia Type 19 IgG 1.0 09/23/18 14:49 S.pneumonia Type 23 IgG <0.3 09/23/18 14:49 S.pneumoniae Typ 26 IgG <0.3 09/23/18 14:49 S.pneumoniae Typ 51 IgG <0.3 09/23/18 14:49 S.pneumoniae Typ 56 IgG <0.3 09/23/18 14:49 S.pneumoniae Typ 68 IgG 2.3 09/23/18 14:49 S. pneumoniae Antigen Negative (NEGATIVE) 09/23/18 16:10 - Hospital Course Hospital Course: On admission: 38F PMHx of hematuria presents to ED with complaint of dysuria, back pain, suprapubic pressure, fever/chills, nausea, and vomiting for the past 3 days. Temperature noted to be 102.4. Patient took Motrin for fever, but states that she vomited it up. Pt reports having hematuria for about 3 years or so, has followed up with a doctor on but cant remember her name. says she got an U/S that showed kidney stones. Patient reports that she is not . Patient states she feels generally weak and also described a diffuse, nonradiating headache. During hospital stay: CT abdomen and pelvis was done which showed left pyelonephritis, no hydronephrosis or nephrolithiasis. Renal ultrasound showed no nephrolithiasis, no hydronephrosis. Last fever was noted to be on September 23, 2018 at a temp of 100.9. Urinalysis showed leukocyte esterase, bacteria, pyuria. Urine culture grew e.coli only resistant to ampicillin. Patient was administered Primaxin, Azithromycin, IVF, zofran PRN, tylenol PRN for fevers. Blood cultures were done which were negative for 4 days. Repeat urinalysis showed 3+ blood, repeat urine culture was negative. Repeat blood cultures showed no growth for the past [address] was done which showed multi-focal infiltrates, small bilateral pleural effusions. Chest CTA was done to rule out PE as patient was persistently tachycardic and complained of shortness of breath on exertion. It showed no evidence of pulmonary embolism. Limited examination for evaluation of subsegmental pumonary artery branches. Small bilateral pleural effusion. Increasing bilateral lower lobe infiltrates with mild patchy bilateral upper lobe infiltrates new since prior examination. 3.4 cm rounded soft tissue density structure in the subcarinal space. ABG was done which showed respiratory alkalosis, normal lactate. Patient clinically improved throughout admission and was optimized for discharge with Levaquin. Patient was instructed to followup results of echocardiogram on her clinic visit at [facility] where she plans to establish care. Please see EMR for full summary. Discharge Exam - Additional Findings Additional findings: - Constitutional Appears: Non-toxic, No Acute Distress - Head Exam Head Exam: ATRAUMATIC, NORMOCEPHALIC - Eye Exam Eye Exam: EOMI, Normal appearance - ENT Exam ENT Exam: Mucous Membranes Moist - Respiratory Exam Respiratory Exam: Clear to Auscultation Bilateral. absent: Rhonchi, Wheezes, Respiratory Distress, Stridor - Cardiovascular Exam Cardiovascular Exam: RRR, +S1, +S2. absent: tachycardia - GI/Abdominal Exam GI & Abdominal Exam: Soft, Normal Bowel Sounds. absent: Distended, Firm, Guarding, Rigid, Tenderness (no suprapubic tenderness) - Extremities Exam Extremities Exam: Normal Capillary Refill. absent: Calf Tenderness, Pedal Edema, Tenderness - Neurological Exam Neurological Exam: Alert, Awake, Normal Gait - Psychiatric Exam Psychiatric exam: Normal Affect, Normal Mood - Skin Skin Exam: Dry, Normal Color, Warm Discharge Plan - Discharge Medications Prescriptions: levoFLOXacin [Levaquin] 750 mg PO DAILY 5 Days #5 tab - Follow Up Plan Condition: GOOD Disposition: HOME/ ROUTINE Patient education suggested?: Yes Instructions: Levofloxacin (Systemic), Blood in the Urine (Hematuria), Adult (DC), Community-Acquired Pneumonia in Adults, Kidney Infection (DC) Additional Instructions: Please follow up with your primary medical doctor at the [facility] within one week An appointment has been made for you for September 29 at 1:30 PM Please show up 15 minutes before your appointment You will need to follow up with for a repeat chest CT and for the results of your echocardiogram Resume any home medications as prescribed Return to the emergency department if symptoms return or worsen Por favor, rossi un seguimiento con batista mdico de cabecera en la clnica [facility] en el plazo de carmen semana Se odell hecho carmen roberto para usted para el a las 1:30 P.M. Por favor, muestre 15 minutos antes de batista roberto Tendr que hacer un seguimiento de la TC de trax repetida y de los resultados de batista ecocardiograma Reanuda cualquier medicamento casero segn lo prescrito Regrese al Departamento de emergencias si los sntomas regresan o empeoran Referrals: [facility] [Outside] - 09/29/18 1:30 pm
[2018-09-27 15:44] VITALS: BP 134/86; PULSE 72; TEMP 98; O2SAT 98
== END 2018-09-27 16:00 | disposition home or self-care (01) | DRG 463 ==
LOC: C.ER 17:55 → C.9E 21:35 → C.5S 21:51
PROVIDERS: ADMIT Family Medicine; ATTEND Family Medicine
DX: N10 Acute pyelonephritis (principal); A41.9 Sepsis, unspecified organism; J18.9 Pneumonia, unspecified organism; J90 Pleural effusion, not elsewhere classified; E87.3 Alkalosis; E87.6 Hypokalemia; N76.0 Acute vaginitis; B96.20 Unspecified Escherichia coli [E. coli] as the cause of diseases classified elsewhere; Z16.11 Resistance to penicillins; R31.0 Gross hematuria